=== PATIENT | male | born 1995 | race Caucasian/White ===

== ENCOUNTER 2022-01-08 07:32 | Emergency (ER) | payer BC ==
[~2022-01-08] VITALS: Ht 177.8 cm; Wt 81.6 kg
[2022-01-08 07:42] VITALS: BP 126/68
--- NOTE | 2022-01-08 07:53 | NUR ---
Patient discharged to home in stable condition. Written and verbal after care instructions given. Patient verbalizes understanding of instruction.
== END 2022-01-08 07:58 | disposition home or self-care (01) ==
LOC: ER 07:38
DX: R59.9 Enlarged lymph nodes, unspecified (principal)